=== PATIENT | female | born 1995 | race Two or more races ===

== ENCOUNTER 2023-12-29 21:31 | Observation (INO) | payer BC, OTHER | END 2023-12-29 23:36 | disposition home or self-care (01) | LOC: LDRP 21:31 | PROVIDERS: ADMIT Obstetrics & Gynecology; ATTEND Obstetrics & Gynecology | DX: O26.872 Cervical shortening, second trimester (principal); Z3A.22 22 weeks gestation of pregnancy | CPT/HCPCS: 76805; 76817; 81002; 94760; G0378 ==

== ENCOUNTER 2024-01-23 11:13 | Observation (INO) | payer BC ==
[~2024-01-23] VITALS: Ht 154.9 cm; Wt 75.7 kg
[2024-01-23 12:53] LABS: Vaginal Bacteria Moderate; Vaginal Clue Cells Few; Vaginal Epithelial Cells Moderate; Vaginal Trichomonas Not Present
[2024-01-23 12:57] LABS: Fern Testing Negative
[2024-01-23] MEDS: NIFEdipine 10 MG CAP PO ONE (13:10)
[2024-01-23] MEDS ORDERED: TERBUTALINE SULFATE 1 MG/ML 1ML VIAL SC SCH (13:15)
[2024-01-23] MEDS ORDERED: MET075VC VG (13:36)
[2024-01-23] MEDS ORDERED: NIF10C PO (13:36)
[2024-01-23] MEDS: BETAMETHASONE ACET (30mg/5ml) 5ml Vial 6mg/ml IM ONE (14:00)
== END 2024-01-23 14:21 | disposition home or self-care (01) ==
LOC: LDRP 11:13 → UNDOADMOB 11:13 → LDRP 11:26
PROVIDERS: ADMIT Obstetrics & Gynecology; ATTEND Obstetrics & Gynecology
DX: O23.592 Infection of other part of genital tract in pregnancy, second trimester (principal); B96.89 Other specified bacterial agents as the cause of diseases classified elsewhere; O26.892 Other specified pregnancy related conditions, second trimester; N89.8 Other specified noninflammatory disorders of vagina; Z3A.26 26 weeks gestation of pregnancy
CPT/HCPCS: 59025; 81002; 87210; 94760; 96372; G0378; J0702; Q0114

== ENCOUNTER 2024-01-24 14:23 | Observation (INO) | payer BC ==
[~2024-01-24] VITALS: Ht 154.9 cm; Wt 75.7 kg
[~2024-01-24 14:23] MED LIST: MET075VC VG; NIF10C PO
[2024-01-24] MEDS: BETAMETHASONE ACET (30mg/5ml) 5ml Vial 6mg/ml IM ONE (14:57)
== END 2024-01-24 15:33 | disposition home or self-care (01) ==
LOC: UNDOADMOB 14:23 → LDRP 14:23
PROVIDERS: ADMIT Obstetrics & Gynecology; ATTEND Obstetrics & Gynecology
DX: O60.03 Preterm labor without delivery, third trimester (principal); Z3A.26 26 weeks gestation of pregnancy
CPT/HCPCS: 59025; 81002; 94760; 96372; G0378

== ENCOUNTER 2024-01-31 19:10 | Observation (INO) | payer BC, MEDICAID ==
[~2024-01-31] VITALS: Ht 154.9 cm; Wt 74.4 kg
== END 2024-01-31 20:45 | disposition home or self-care (01) ==
LOC: LDRP 19:10
PROVIDERS: ADMIT Obstetrics & Gynecology; ATTEND Obstetrics & Gynecology
DX: O60.02 Preterm labor without delivery, second trimester (principal); Z3A.27 27 weeks gestation of pregnancy
CPT/HCPCS: 59025; 81002; 94760; G0378

== ENCOUNTER 2024-02-07 19:11 | Observation (INO) | payer BC, MEDICAID ==
[2024-02-07] MEDS ORDERED: PROG100C23 PO (20:24)
== END 2024-02-07 20:35 | disposition home or self-care (01) ==
LOC: LDRP 19:11
PROVIDERS: ADMIT Obstetrics & Gynecology; ATTEND Obstetrics & Gynecology
DX: O60.03 Preterm labor without delivery, third trimester (principal); Z3A.28 28 weeks gestation of pregnancy
CPT/HCPCS: 59025; 76815; 81002; 94760; G0378

== ENCOUNTER 2024-02-14 19:13 | Observation (INO) | payer BC, MEDICAID ==
[~2024-02-14 19:13] MED LIST changes: +PROG100C23 PO
== END 2024-02-14 20:39 | disposition home or self-care (01) ==
LOC: LDRP 19:13
PROVIDERS: ADMIT Obstetrics & Gynecology; ATTEND Obstetrics & Gynecology
DX: O60.03 Preterm labor without delivery, third trimester (principal); Z3A.29 29 weeks gestation of pregnancy
CPT/HCPCS: 59025; 81002; 94760; G0378

== ENCOUNTER 2024-02-21 19:11 | Observation (INO) | payer BC, MEDICAID | END 2024-02-21 20:44 | disposition home or self-care (01) | LOC: LDRP 19:11 | PROVIDERS: ADMIT Obstetrics & Gynecology; ATTEND Obstetrics & Gynecology | DX: O60.03 Preterm labor without delivery, third trimester (principal); Z3A.30 30 weeks gestation of pregnancy | CPT/HCPCS: 59025; 81002; 94760; G0378 ==

== ENCOUNTER 2024-02-28 08:12 | Observation (INO) | payer BC, MEDICAID ==
[2024-02-28] MEDS ORDERED: AMOX250C3 PO (19:56)
== END 2024-02-28 20:05 | disposition home or self-care (01) ==
LOC: LDRP 19:14
PROVIDERS: ADMIT Obstetrics & Gynecology; ATTEND Obstetrics & Gynecology
DX: O60.03 Preterm labor without delivery, third trimester (principal); Z3A.31 31 weeks gestation of pregnancy
CPT/HCPCS: 59025; 81002; 94760; G0378

== ENCOUNTER 2024-03-06 19:15 | Observation (INO) | payer BC, MEDICAID ==
[~2024-03-06 19:15] MED LIST changes: +AMOX250C3 PO
== END 2024-03-06 20:52 | disposition home or self-care (01) ==
LOC: LDRP 19:15
PROVIDERS: ADMIT Obstetrics & Gynecology; ATTEND Obstetrics & Gynecology
DX: O60.03 Preterm labor without delivery, third trimester (principal); Z3A.32 32 weeks gestation of pregnancy
CPT/HCPCS: 59025; 76818; 81002; 94760; G0378

== ENCOUNTER 2024-03-13 19:15 | Observation (INO) | payer BC, MEDICAID ==
[~2024-03-13 19:15] MED LIST changes: -AMOX250C3 PO
== END 2024-03-13 20:39 | disposition home or self-care (01) ==
LOC: LDRP 19:15
PROVIDERS: ADMIT Obstetrics & Gynecology; ATTEND Obstetrics & Gynecology
DX: O60.03 Preterm labor without delivery, third trimester (principal); Z3A.33 33 weeks gestation of pregnancy
CPT/HCPCS: 59025; 76818; 81002; 94760; G0378

== ENCOUNTER 2024-03-20 19:12 | Observation (INO) | payer BC, MEDICAID ==
[~2024-03-20] VITALS: Ht 160 cm; Wt 76.2 kg
== END 2024-03-20 20:53 | disposition home or self-care (01) ==
LOC: LDRP 19:12
PROVIDERS: ADMIT Obstetrics & Gynecology; ATTEND Obstetrics & Gynecology
DX: O60.03 Preterm labor without delivery, third trimester (principal); Z3A.34 34 weeks gestation of pregnancy
CPT/HCPCS: 59025; 76818; 94760; G0378

== ENCOUNTER 2024-04-17 11:00 | Inpatient (IN) | payer MEDICAID ==
[2024-04-17] VITALS (11 sets, daily range): BP systolic 99–121; BP diastolic 57–90; PULSE 76–111; RESP 15–18; TEMP 98–98.8; O2SAT 95–100
[~2024-04-17] VITALS: Ht 172.7 cm; Wt 77.1 kg
[~2024-04-17 11:00] MED LIST changes: -NIF10C PO; +NIFE10CA52 PO
[2024-04-17] MEDS: LACTATED RINGER'S 1,000 ML IV ONE (11:45)
[2024-04-17 11:47] LABS: Basophils # (auto) 0 10 ^3/uL (0-0.2); Basophils % (auto) 0.3 % (0.0-2.0); Eosinophils # (auto) 0.1 10 ^3/uL (0-0.8); Eosinophils % (auto) 0.9 % (0.0-7.0); Hematocrit 34.9 % (36.0-46.0); Hemoglobin 11.7 g/dL (12.2-16.2); Lymphocytes # (auto) 1.9 10 ^3/uL (0.4-5.4); Lymphocytes % (auto) 30.7 % (10.0-50.0); Mean Corpuscular Hemoglobin 28.8 pg (28.0-32.0); Mean Corpuscular Hgb Conc. 33.5 g/dL (32.0-36.0); Mean Corpuscular Volume 85.9 fL (80.0-100.0); Monocytes # (auto) 0.5 10 ^3/uL (0-1.3); Monocytes % (auto) 7.8 % (0.0-12.0); Neutrophils # (auto) 3.8 10 ^3/uL (1.6-8.6); Neutrophils % (auto) 60.3 % (37.0-80.0); Nucleated Red Blood Cells % 0.1 %; Platelet Count (auto) 268 10^3/uL (140-450); Red Blood Cells 4.07 10^6/uL (4.0-5.20); Red Cell Distribution Width 14.8 % (11.8-14.3); White Blood Cell 6.3 10^3/uL (4.4-10.8)
[2024-04-17 12:04] LABS: Albumin 3.9 g/dL (3.2-4.8); Alkaline Phosphatase 154 U/L (46-116); Anion Gap 8 (5-15); Aspartate Aminotransferase 10 U/L (13-40); BUN/Creatinine Ratio 12.1 (10.0-20.0); Bilirubin, Total 0.6 mg/dL (0.2-1.0); Blood Urea Nitrogen 7 mg/dL (9-23); Calcium 9.3 mg/dL (8.7-10.4); Carbon Dioxide 21 mmol/L (20-30); Chloride 108 mmol/L (98-107); Glucose 98 mg/dL (74-106); Potassium 3.7 mmol/L (3.5-5.1); Sodium 137 mmol/L (136-145); Total Protein 6.9 g/dL (5.7-8.2)
[2024-04-17 12:05] LABS: Alanine Aminotransferase < 9 U/L (7-40)
[2024-04-17 12:08] LABS: INR 0.96 (0.9-1.15); Partial Thromboplastin Time 25.4 SEC (24.5-34.5); Prothrombin Time 10.2 sec (9.3-11.8)
[2024-04-17] MEDS ORDERED: HYDR-4902 PO (12:31)
[2024-04-17] MEDS ORDERED: DOCU-94 PO (12:31)
[2024-04-17] MEDS ORDERED: IBUP-1456 PO (12:31)
[2024-04-17] MEDS: GUM (CHEWING) 1 GUM CHEW CHEW ONE (12:45)
[2024-04-17] MEDS ORDERED: ONDANSETRON HCL 4 MG/2 ML VIAL IV PRN ×2 (12:45→15:00)
[2024-04-17 12:59] LABS: Amphetamine Screen, Urine Neg (NEGATIVE); Barbiturate Scree,Urine Neg (NEGATIVE); Benzodiazephine Screen, Urine Neg (NEGATIVE)
[2024-04-17 13:00] LABS: Cannabinoid Screen, Urine Neg (NEGATIVE); Cocaine Screen, Urine Neg (NEGATIVE); Opiate Scree,Urine Neg (NEGATIVE); Phencyclidine Screen, Urine Neg (NEGATIVE)
[2024-04-17 13:59] LABS: Urine Bacteria FEW /hpf (None Seen); Urine Blood Negative /uL (Negative); Urine Clarity Turbid (Clear); Urine Color Light-Orange (Yellow); Urine Mucus FEW (None Seen); Urine Protein, UAD TRACE (Negative); Urine Specific Gravity 1.021 (1.001-1.035); Urine Urobilinogen Normal (Negative); Urine WBC 65 /hpf (0 - 5); Urine pH 5.5 (5.0-9.0)
[2024-04-17] MEDS: LACTATED RINGER'S 1,000 ML IV SCH (13:59)
[2024-04-17] MEDS: ceFAZolin 2 GM/D5W50ml 50 ML IV ONE (13:59)
[2024-04-17] MEDS ORDERED: MORPHINE SULF PF 5 MG/10 ML VIAL ONE (14:02)
[2024-04-17] MEDS ORDERED: fentaNYL CITRATE 100 MCG/2 ML VL ONE (14:03)
[2024-04-17] MEDS ORDERED: oxyTOCIN 10 UNIT/ML 10ML VIAL ONE (14:31)
[2024-04-17] MEDS ORDERED: MIDAZOLAM HCL 2MG/2ML 2ml VIAL (1mg/ml) ONE (14:34)
[2024-04-17] MEDS: CARBOPROST TROMETHAMINE 250 MCG/1ML VIAL IM ONE ×2 (14:36→14:51)
[2024-04-17] MEDS: ONDANSETRON HCL 4 MG/2 ML VIAL IV ONE (15:00)
[2024-04-17] MEDS ORDERED: DexAMETHasone SOD PHOS 10MG/1ML VIAL INJ IV PRN (15:00)
[2024-04-17] MEDS ORDERED: MORPHINE SULFATE 4 MG/ML SYR/VIAL IV PRN (15:00)
[2024-04-17] MEDS ORDERED: HYDROmorphone HCL 2 MG/ML VL/or syr IV PRN ×2 (15:00)
[2024-04-17] MEDS ORDERED: NALOXONE HCL 0.4 MG/ML VIAL IV PRN (15:00)
[2024-04-17] MEDS ORDERED: hydrALAZINE HCL 20 MG/ML VL IV PRN (15:00)
[2024-04-17] MEDS ORDERED: ePHEDrine SULFATE 50 MG/ML AMP IV PRN (15:00)
[2024-04-17] MEDS ORDERED: MIDAZOLAM HCL 2MG/2ML 2ml VIAL (1mg/ml) IV PRN (15:00)
[2024-04-17] MEDS: miSOPROStol 100 mcg TAB ONE (15:02)
[2024-04-17] MEDS: DIPHENOXYLATE W/ATROPINE 2.5 MG TAB PO ONE (15:28)
[2024-04-17] MEDS: LACT. RINGERS/OXYTOCIN 20UNITS 1,000 ML IV ONE (16:24)
[2024-04-17] MEDS ORDERED: ACETAMINOPHEN IV 1000 MG/100ML (10MG/ML) IV PRN (18:30)
[2024-04-17] MEDS: ceFAZolin 1GM/50ML 50 ML IV SCH (22:10)
[2024-04-17 22:26] LABS: Basophils # (auto) 0 10 ^3/uL (0-0.2); Basophils % (auto) 0.2 % (0.0-2.0); Eosinophils # (auto) 0 10 ^3/uL (0-0.8); Eosinophils % (auto) 0.1 % (0.0-7.0); Hematocrit 30.4 % (36.0-46.0); Lymphocytes # (auto) 1.5 10 ^3/uL (0.4-5.4); Lymphocytes % (auto) 13.2 % (10.0-50.0); Mean Corpuscular Hemoglobin 28.3 pg (28.0-32.0); Mean Corpuscular Hgb Conc. 32.8 g/dL (32.0-36.0); Mean Corpuscular Volume 86.3 fL (80.0-100.0); Monocytes # (auto) 0.7 10 ^3/uL (0-1.3); Monocytes % (auto) 6.3 % (0.0-12.0); Neutrophils # (auto) 9.1 10 ^3/uL (1.6-8.6); Neutrophils % (auto) 80.2 % (37.0-80.0); Platelet Count (auto) 242 10^3/uL (140-450); Red Blood Cells 3.53 10^6/uL (4.0-5.20); White Blood Cell 11.3 10^3/uL (4.4-10.8)
[2024-04-17] MEDS: TETRACAINE 1% INJ 2 ML VIAL IJ ONE (23:41)
[2024-04-17] MEDS: DIPHENOXYLATE W/ATROPINE 2.5 MG TAB ONE (23:42)
[2024-04-18] VITALS (18 sets, daily range): BP systolic 97–131; BP diastolic 50–78; PULSE 85–105; RESP 16–32; TEMP 97.9–99.2; O2SAT 93–98
[2024-04-18] MEDS: diphenhdrAMINE HCL 50 MG/1 ML VL IV PRN (00:02)
[2024-04-18] MEDS: KETOROLAC TROMETH 30 MG/ML 1ML VIAL IV PRN (03:01)
[2024-04-18 06:41] LABS: Basophils # (auto) 0 10 ^3/uL (0-0.2); Basophils % (auto) 0.2 % (0.0-2.0); Eosinophils # (auto) 0 10 ^3/uL (0-0.8); Eosinophils % (auto) 0.1 % (0.0-7.0); Hematocrit 26.8 % (36.0-46.0); Lymphocytes # (auto) 1.2 10 ^3/uL (0.4-5.4); Lymphocytes % (auto) 12.6 % (10.0-50.0); Mean Corpuscular Hemoglobin 28.7 pg (28.0-32.0); Mean Corpuscular Hgb Conc. 33.5 g/dL (32.0-36.0); Mean Corpuscular Volume 85.6 fL (80.0-100.0); Monocytes # (auto) 0.8 10 ^3/uL (0-1.3); Monocytes % (auto) 9.1 % (0.0-12.0); Neutrophils # (auto) 7.2 10 ^3/uL (1.6-8.6); Platelet Count (auto) 226 10^3/uL (140-450); Red Blood Cells 3.13 10^6/uL (4.0-5.20); Red Cell Distribution Width 15.2 % (11.8-14.3); White Blood Cell 9.2 10^3/uL (4.4-10.8)
[2024-04-18 08:07] LABS: RPR Non Reactive (Non Reactive)
[2024-04-18 12:06] LABS: Treponema Pallidum Ab LC Non Reactive (Non Reactive)
[2024-04-18] MEDS ORDERED: HYDROcodone-ACET 5/325MG TAB PO PRN ×2 (14:15)
[2024-04-18] MEDS ORDERED: BISACODYL 10 MG RECT SUPP PR PRN (14:15)
[2024-04-18] MEDS: ceFAZolin 1GM/50ML 50 ML IV SCH (14:45)
[2024-04-18] MEDS: SIMETHICONE 80 MG CHEWABLE TABLET PO SCH (18:00)
[2024-04-18] MEDS: IBUPROFEN 800 MG TAB PO PRN (20:13)
[2024-04-18] MEDS: DOCUSATE SOD 100 MG CAP PO SCH (22:00)
[2024-04-19 02:55] VITALS: BP 114/73; PULSE 88; RESP 20; TEMP 98.1; O2SAT 95
[2024-04-19 07:00] VITALS: BP 107/72; PULSE 78; RESP 18; TEMP 97.8; O2SAT 95
[2024-04-19] MEDS: DOCUSATE CALCIUM 240 MG CAP PO SCH (10:33)
[2024-04-19 10:51] VITALS: BP 124/75; PULSE 57; RESP 17; TEMP 97.7; O2SAT 98
[2024-04-19 11:00] VITALS: BP 115/80; PULSE 84; RESP 17; TEMP 98; O2SAT 98
[2024-04-19] MEDS: TETANUS-DIPTH-ACEL PERTUSSIS 0.5ML SYR Tdap IM ONE (15:21)
[2024-04-19] MEDS ORDERED: PHENYLEPHRINE HCL 10 MG/ML VL IV ONE (16:10)
== END 2024-04-19 16:11 | disposition home or self-care (01) | DRG 540 ==
LOC: EDUNIT# 11:00 → LDRP 11:00 → OBSVTOIN 11:40 → LDRP 14:16
PROVIDERS: ADMIT Obstetrics & Gynecology; ATTEND Obstetrics & Gynecology
PROC: 10D00Z1 Extraction of Products of Conception, Low, Open Approach (ICD-10-PCS; principal; 2024-04-17 14:06)
DX: O69.81X0 Labor and delivery complicated by cord around neck, without compression, not applicable or unspecified (principal); O60.14X0 Preterm labor third trimester with preterm delivery third trimester, not applicable or unspecified; R71.0 Precipitous drop in hematocrit; O34.211 Maternal care for low transverse scar from previous cesarean delivery; Z3A.38 38 weeks gestation of pregnancy; Z37.0 Single live birth
CPT/HCPCS: 36415; 59025; 80053; 80307; 81001; 81002; 84112; 85025; 85610; 85730; 86592; 86803; 86850; 86900; 86901; 90715; 94760; 94762; 96360; 96361; 96365; 96366; 96374; G0378; J1885; J2250; J2590